=== PATIENT | female | born 1940 | race American Indian/Alaskan Native ===

== ENCOUNTER 2016-03-06 14:52 | Outpatient (CLI) | payer MEDICARE ==
--- NOTE | 2016-03-06 15:39 | XRay Report ---
CHEST X-RAY, 2 VIEWS History: Chest pain Findings: No comparison. There is an ill-defined 3.4 cm opacity in the right upper lobe seen only on the PA view. This is concerning for a mass although infiltrate/scarring could be considered. The remainder of the lungs are clear. There is focal pleural thickening in the lateral right upper lobe adjacent to the mass. No effusion or pneumothorax. Normal heart and mediastinal structures. Impression: 3.4 cm ill-defined right upper lobe opacity. Further evaluation with CT chest with contrast is recommended.
== END 2016-03-06 14:53 | disposition home or self-care (01) ==
LOC: SPVIMAG 14:52
DX: R07.9 Chest pain, unspecified (principal)
CPT/HCPCS: 71020